=== PATIENT | female | born 1945 | race Two or more races ===

== ENCOUNTER 2018-04-22 00:58 | Emergency (ER) | payer OTHER ==
[~2018-04-22] VITALS: Ht 152.4 cm; Wt 104.3 kg
[~2018-04-22 00:58] MED LIST: ATEN50TA; CLOP75TA41; INSUINJ; INSUINJ2; LISI10TA6; SIMV10TA84; TERA2CAP45; TRAM50TA2
[2018-04-22 02:23] LABS: Basophils # (auto) 0.1 uL; Basophils % (auto) 0.9 % (0.0-2.0); Eosinophils # (auto) 0.1 uL; Eosinophils % (auto) 1.1 % (0.0-7.0); Hematocrit 37.1 % (36.0-46.0); Hemoglobin 12.5 g/dL (12.2-16.2); Lymphocytes # (auto) 3.4 uL; Lymphocytes % (auto) 36.2 % (10.0-50.0); Mean Corpuscular Hemoglobin 33.2 pg (28.0-32.0); Mean Corpuscular Hgb Conc. 33.7 g/dL (32.0-36.0); Mean Corpuscular Volume 98.7 fL (80.0-100.0); Monocytes # (auto) 0.8 uL; Monocytes % (auto) 8.6 % (0.0-12.0); Neutrophils % (auto) 53.2 % (37.0-80.0); Nucleated Red Blood Cells % 0.1 %; Platelet Count (auto) 171 10^3/uL (140-450); Red Blood Cells 3.76 10^6/uL (4.0-5.20); Red Cell Distribution Width 13.3 % (11.8-14.3); White Blood Cell 9.4 10^3/uL (4.4-10.8)
[2018-04-22 02:38] LABS: INR 0.94 (0.9-1.15); Partial Thromboplastin Time 25.2 sec (23.78-33.04); Prothrombin Time 10.1 sec (9.27-12.13)
[2018-04-22 02:47] LABS: Albumin 3.6 g/dL (3.4-5.0); Anion Gap 9 (5-15); Blood Urea Nitrogen 22 mg/dL (7-18); Carbon Dioxide 24 mmol/L (21-32); Chloride 104 mmol/L (98-107); Glucose 194 mg/dL (74-106); Potassium 4.2 mmol/L (3.5-5.1); Sodium 137 mmol/L (136-145)
[2018-04-22 02:49] LABS: Alanine Aminotransferase 44 U/L (13-56); Aspartate Aminotransferase 39 U/L (15-37); BUN/Creatinine Ratio 20.6; GFR African American 65 mL/min; GFR Non-African American 54 mL/min
[2018-04-22 02:54] LABS: Alkaline Phosphatase 94 U/L (45-117); Bilirubin, Total 0.3 mg/dL (0.2-1.0); Total Protein 8.7 g/dL (6.4-8.2)
[2018-04-22 03:07] LABS: Amylase 88 U/L (25-115); Lipase 163 U/L (73-393)
[2018-04-22 05:00] LABS: Urine Bacteria NONE SEEN /hpf (None Seen); Urine Blood Negative /uL (Negative); Urine Specific Gravity 1.006 (1.001-1.035); Urine WBC <1 /hpf (0 - 5)
[2018-04-22] MEDS ORDERED: ASPirin 81 mg TAB PO ONE (07:30)
[2018-04-22] MEDS ORDERED: SODIUM CHLORIDE 0.9% 1,000 ML IV ONE (07:30)
[2018-04-22] MEDS ORDERED: SODIUM CHLORIDE 0.9% 1,000 ML IV SCH (08:43)
[2018-04-22] MEDS ORDERED: PROMETHAZINE HCL 25 MG/ML 1ML IV PRN (08:45)
[2018-04-22] MEDS ORDERED: ACETAMINOPHEN 500 MG TAB PO PRN (08:45)
[2018-04-22] MEDS ORDERED: HYDROcodone-ACET 5/325MG TAB PO PRN (08:45)
[2018-04-22] MEDS ORDERED: MORPHINE SULF INJ 2 MG/ML SYRINGE 1ML IV PRN ×2 (08:45)
[2018-04-22] MEDS ORDERED: LORazepam 0.5 MG TAB PO PRN (08:45)
[2018-04-22] MEDS ORDERED: LACTULOSE 20Gm/30ML SOLN PO PRN (08:45)
[2018-04-22] MEDS ORDERED: NITROGLYCERIN 0.4 MG SL TAB SL PRN (08:45)
[2018-04-22] MEDS ORDERED: TEMAZEPAM 15 MG CAP PO PRN (08:45)
[2018-04-22] MEDS ORDERED: DEXTROSE (50%) 50ML SYRG IV PRN (08:45)
[2018-04-22] MEDS: InsuLIN REG 1unit/0.01ml Soln (100units/ml) SC SCH ×2 (09:23→13:17)
[2018-04-22] MEDS ORDERED: IOHEXOL 350 MG/ML 100ML IJ ONE (09:48)
[2018-04-22] MEDS ORDERED: ASPirin 81 mg TAB PO SCH (10:00)
[2018-04-22] MEDS ORDERED: PANTOPRAZOLE 40 MG TAB PO SCH (10:00)
[2018-04-22] MEDS ORDERED: NITROGLYCERIN 0.2MG/HR TOPICAL PATCH TD SCH (10:00)
[2018-04-22] MEDS ORDERED: METOPROLOL TARTRATE 25 MG TAB PO SCH (10:00)
[2018-04-22 11:09] LABS: Alcohol, Urine < 3.0 mg/dL (0-5); Amphetamine Screen, Urine NEGATIVE (NEGATIVE); Barbiturate Scree,Urine NEGATIVE (NEGATIVE); Benzodiazephine Screen, Urine NEGATIVE (NEGATIVE); Cannabinoid Screen, Urine NEGATIVE (NEGATIVE); Cocaine Screen, Urine NEGATIVE (NEGATIVE); Opiate Scree,Urine NEGATIVE (NEGATIVE); Phencyclidine Screen, Urine NEGATIVE (NEGATIVE)
[2018-04-22] MEDS ORDERED: ACCU-CHEK COMFORT CURVE STRIP VI SCH (11:30)
[2018-04-22 14:22] VITALS: BP 136/68
[2018-04-22] MEDS ORDERED: ATORVASTATIN 20 MG TAB PO SCH (22:00)
== END 2018-04-22 15:38 | disposition short-term general hospital (02) ==
LOC: ER 01:06
DX: R07.9 Chest pain, unspecified (principal); E11.21 Type 2 diabetes mellitus with diabetic nephropathy; E11.65 Type 2 diabetes mellitus with hyperglycemia; E78.5 Hyperlipidemia, unspecified; I10 Essential (primary) hypertension; I25.10 Atherosclerotic heart disease of native coronary artery without angina pectoris; Z90.49 Acquired absence of other specified parts of digestive tract; Z88.0 Allergy status to penicillin; Z88.2 Allergy status to sulfonamides; Z79.84 Long term (current) use of oral hypoglycemic drugs; Z79.899 Other long term (current) drug therapy
CPT/HCPCS: 36415; 71045; 71275; 80053; 80307; 81001; 82150; 82550; 82962; 83036; 83690; 83735; 83880; 84443; 84484; 85025; 85379; 85610; 85652; 85730; 86141; 93005; 94761; 96360; 96372; 99285; J1815; Q9967